=== PATIENT | female | born 1955 | race Caucasian/White ===

== ENCOUNTER 2023-08-08 17:04 | Emergency (ER) | payer OTHER ==
[2023-08-08 17:25] VITALS: BP 155/98; PULSE 94; RESP 18; TEMP 98.5; BMI 27.9
== END 2023-08-08 17:45 | disposition home or self-care (01) ==
LOC: FER 17:04
DX: Z04.1 Encounter for examination and observation following transport accident (principal); V47.5XXA Car driver injured in collision with fixed or stationary object in traffic accident, initial encounter; Y92.410 Unspecified street and highway as the place of occurrence of the external cause
CPT/HCPCS: 99282-25